=== PATIENT | female | born 1975 | race Two or more races ===

== ENCOUNTER 2023-02-13 03:42 | Emergency (ER) | payer OTHER ==
[~2023-02-13] VITALS: Ht 165.1 cm; Wt 68.0 kg
[2023-02-13] MEDS ORDERED: GENTAFAIR5 ML OP (05:08)
[2023-02-13] MEDS ORDERED: CLEAR EYES REDNE6 ML OP (05:08)
[2023-02-13] MEDS ORDERED: PRED FORTE5 ML OP (05:08)
== END 2023-02-13 05:14 ==
LOC: ER 03:42
DX: H16.311 Corneal abscess, right eye (principal)